=== PATIENT | female | born 1980 | race Caucasian/White ===

== ENCOUNTER 2023-12-11 22:02 | Emergency (ER) | payer OTHER, SELFPAY ==
--- NOTE | 2023-12-11 22:00 | DI.RAD_ITS ---
Exam(s) XR TIB/FIB LT EXAM: XR TIB/FIB LT CLINICAL HISTORY: trauma. TECHNIQUE: 2D digital imaging was performed of the left tibia and fibula. Two images were obtained. AP and lateral views were obtained. COMPARISON: No exams were available for comparison FINDINGS: BONES: No acute fracture is present. No bony destructive lesion is seen. Visualized portion of knee a nd ankle joints are unremarkable. The distal aspect of the lateral malleolus is not included on the A P film. SOFT TISSUE: Normal. IMPRESSION: Within the limits of the examination, no acute fracture or dislocation is present. DATA REPOSITORY: RADIATION DOSE DELIVERED:
[2023-12-11 22:02] VITALS: BP 145/100; PULSE 118; RESP 18; TEMP 37.1; O2SAT 99
[2023-12-11] MEDS: Acetaminophen 500 MG TAB 1000 MG PO (22:22)
[2023-12-11] MEDS: Lidocaine/Epinephri/Tetracaine Topical Gel 3 ML TP ×2 (22:22)
--- NOTE | 2023-12-11 23:24 | ED.GENADUL_ITS ---
Discharge Plan Disposition Patient Disposition: Home Condition: Stable Discharge Details Clinical Impression: Laceration of leg ED Provider: Prince Scott Home Meds and New Rx's Prescriptions: New cephalexin 500 mg capsule 500 mg PO BID 3 Days Qty: 6 0RF Discharge Instructions Instructions: Wound Infection Additional Instructions: * Keep wound clean with soap and water, pat dry * Keep covered when outdoors and do not soak in water like that is swimming pools or lakes * Watch closely for signs of infection which include increased redness, swelling, drainage, increased pain or foul smell * Starting to tomorrow you can apply antibiotic ointment to the area * you may notice some light pink-red drainage, this is to be expected but the depth of your wound * Is [address] and also has deep sutures under the skin. These will dissolve. The stitches in your skin will need to be removed in 7 to 10 days * Prescribed antibiotic to prevent infection. You were given 2 days worth of the antibiotic to take home from the emergency department, give a paper prescription for 3 additional days please fill this prescription when you return home., HPI General Date/Time Provider Initiated Documentation: 12/11/23 22:03 . Limitations to Documentation: no limitations . Information obtained by: patient . HPI Narrative: 43-year-old female without significant past medical history presents with acute onset left lower leg pain. Just prior to arrival, the patient was going up stairs, when she slipped and fell hitting her left lower leg against the stairs. The patient reports bleeding and pain localized to the area. Does not have any difficulty with walking. Unsure of tetanus status. Related Data Home Medications Medication Instructions Recorded Confirmed cephalexin 500 mg capsule 500 mg PO BID 3 days #6 caps 12/11/23 Previous Rx's Medication Instructions Recorded cephalexin 500 mg capsule 500 mg PO BID 3 days #6 caps 12/11/23 Allergies Allergy/AdvReac Type Severity Reaction Status Date / Time No Known Drug Allergies AdvReac Unknown Other (See Verified 12/11/23 22:05 Comment) General Stated Complaint: Laceration LASHAY: 3 Exam Narrative Exam Narrative: Review of Systems: All systems reviewed & are unremarkable except as noted in HPI and below Well-developed, no acute distress NCAT PERRL, normal conjunctiva RRR Unlabored respiratory effort Nondistended abdomen Left lower extremity with irregular V-shaped laceration approximately 10cm in length tibia visible nv intact distally no focal neurologic deficits Appropriate mood and affect Course Vital Signs Vital signs: Vital Signs Temperature 37.1 C 12/11/23 22:02 Pulse 118 H 12/11/23 22:02 Respiratory Rate 18 12/11/23 22:02 Blood Pressure 145/100 H 12/11/23 22:02 Pulse Oximetry 99 12/11/23 22:02 Temperature 37.1 C 12/11/23 22:02 Temperature Source Oral 12/11/23 22:02 Pulse 118 H 12/11/23 22:02 Respiratory Rate 18 12/11/23 22:02 Respiratory Effort Normal, Non-Labored 12/11/23 22:06 Blood Pressure 145/100 H 12/11/23 22:02 Blood Pressure Position Sitting 12/11/23 22:02 Pulse Oximetry 99 12/11/23 22:02 Oxygen Delivery Method Room Air 12/11/23 22:02 Oxygen Flow Rate 0 12/11/23 22:02 Pain Level 5 12/11/23 22:06 Procedures Laceration Laceration 1: Site: lower extremity Side (If applicable): left Size (cm): 10 Description: flap, irregular and other (v shaped) Depth: involves muscle layer (periosteom intact ) Local Anesthetic: Lidocaine 1% and other anesthetic (LET) Amount of anesthesia used (mL): 10 Pre-repair: wound explored, irrigated extensively and deep structures intact Skin layer closed with: other (prolene) Size (cm): 4-0 Number of sutures: 15 Technique: simple, interrupted Subcutaneous layer closed with: vicryl Size: 4-0 Number of sutures: 4 Technique: simple, interrupted Medical Decision Making Emergent evaluation of left lower extremity laceration. Large laceration noted. It is full-thickness down to the bone. Periosteum is intact. X-ray obtained and does not reveal fracture or foreign body. Wound extensively irrigated and patient treated prophylactically with antibiotics. Her tetanus was updated. Wound was repaired without complication. Discussed wound care guidance for home, return precautions, signs of infection and when to follow-up for suture removal. Quality:SDOH Health Related Social Needs: No Data to Display PFSH All Active Problems Laceration of leg (Acute) Social History Smoking/Tobacco Use Status: Never Smoking risk assessment performed?: Yes Alcohol Intake: current Alcohol Intake frequency: a few times a week Alcohol type: wine and hard liquor Drug use: Never Substance use type: does not use Housing: house Do you feel safe at home: Yes Do you feel safe in your relationship?: Yes PAWSS Have you Been Recently Intoxicated or Drunk Within the Last 30 days?: Yes Have you Ever Experienced Previous Episodes of Alcohol Withdrawal?: No Have you ever Experienced Withdrawal Seizures?: No Have you ever Experienced Delirium Tremens(DT)s?: No Have you ever undergone Alcohol Rehabilitation Treatment (i.e, inpt ot outpatient treatment programs)?: No Have you ever Experienced Blackouts?: No Have you ever Combined Alcohol with other Downers within the last 90 days?: No Have you ever Combined Alcohol with any other Substance of Abuse during the last 90 days?: No Positive Blood Alcohol level on Presentation? [PCS.BAL]: Yes Evidence of Increased Autonomic Activity (i.e. HR>120, tremor, sweating, agitation, nausea)?: No Result: 2
[2023-12-11] MEDS: Mupirocin 2% Oint. 22 GM TUBE TP (23:39)
[2023-12-11] MEDS: Cephalexin 500 MG CAP PO (23:39)
[2023-12-11] MEDS: Cephalexin 500 MG CAP, 4 CAPS/BTL PO (23:39)
--- NOTE | 2023-12-11 23:45 | DI.VRAD_ITS ---
PROCEDURE INFORMATION: Exam: XR Left Tibia and Fibula Exam date and time: 12/11/2023 10:32 PM Age: 43 years old Clinical indication: Injury or trauma; Blunt trauma; Lower leg; Left; Patient HX: Trauma from fall TECHNIQUE: Imaging protocol: Radiologic exam of the left tibia and fibula. Views: 2 views. COMPARISON: No relevant prior studies available. FINDINGS: Bones/joints: Distal most lateral malleolus excluded on the AP view; otherwise negative study. No acute fracture or subluxation. Soft tissues: Soft tissue swelling anteriorly. IMPRESSION: Distal most lateral malleolus excluded on the AP view; otherwise negative study. Dictated and Authenticated by: Abbey Groves MD. Ordering:BellaNATAN Irvin MD
[2023-12-11 23:57] VITALS: BP 145/85; PULSE 107; RESP 24; TEMP 37; O2SAT 99
== END 2023-12-11 23:58 | disposition home or self-care (01) ==
PROVIDERS: Emergency Provider Emergency Medicine
DX: S81.812A Laceration without foreign body, left lower leg, initial encounter (principal); W10.9XXA Fall (on) (from) unspecified stairs and steps, initial encounter
CPT/HCPCS: 12004; 90471; 90715; 99284; 73590; 99283